=== PATIENT | male | born 1990 | race Asian ===

== ENCOUNTER 2018-02-21 07:09 | Emergency (ER) | payer BC ==
[~2018-02-21] VITALS: Ht 193 cm; Wt 99.8 kg
[2018-02-21 08:17] LABS: PLATELET COUNT 272 K/uL (142-355)
[2018-02-21 08:26] LABS: POTASSIUM 4.7 mmol/L (3.6-5.2); SODIUM 137 mmol/L (136-145)
[2018-02-21 12:47] VITALS: BP 155/95; TEMP 97.7
== END 2018-02-21 12:57 | disposition home or self-care (01) ==
LOC: ED 07:09
PROVIDERS: Family Medicine
DX: R10.84 Generalized abdominal pain (principal); R07.89 Other chest pain
CPT/HCPCS: 36415; 80053; 81000; 82550; 82553; 84484; 85027; 93005; 96374; 96375; 96376; 99284; J1200; J2175; J2550

== ENCOUNTER 2018-05-14 19:29 | Emergency (ER) | payer OTHER ==
[~2018-05-14] VITALS: Ht 193 cm; Wt 99.8 kg
[2018-05-14 21:07] LABS: PLATELET COUNT 177 K/uL (142-355)
[2018-05-14 21:23] LABS: POTASSIUM 3.7 mmol/L (3.6-5.2)
[2018-05-14 23:03] VITALS: BP 130/85; TEMP 98.3
== END 2018-05-14 23:05 | disposition home or self-care (01) ==
LOC: ED 19:29
PROVIDERS: Family Medicine
DX: R10.9 Unspecified abdominal pain (principal); K59.00 Constipation, unspecified; R07.89 Other chest pain
CPT/HCPCS: 36415; 74022; 80053; 82150; 82550; 82553; 83690; 84484; 85027; 93005; 96365; 96374; 99284; J1642